=== PATIENT | male | born 1950 | race Caucasian/White ===

== ENCOUNTER 2024-01-30 05:46 | Inpatient (IN) ==
--- NOTE | 2024-01-23 12:26 | Anesthesiology Consultation ---
Date of Service January 23, 2024 Assessment & Plan (1) Encounter for pre-operative examination: - Check BSG DOS - Infectious disease screening: Per assessment on 01/19/24- No known recent infectious disease contacts or current infectious disease symptoms. - PCP visit (01/19/24): "Twelve-lead EKG completed and it shows that he has right bundle branch block which is incomplete and otherwise has no other f indings. WI interval is 0.178. Heart rate 61. Explained to him that he had a mild conduction disturbance in the heart that really is of no clinical significance other than to avoid certain medications that can slow conduction through the heart. He voices understanding and he is medically stable for operative intervention" Chart Review Chart Review: Acceptable Risk for Surgery and Patient NOT seen in Pre Admission Testing History Surgery Operation Date: 01/30/24 07:30 Proposed Procedures p Robotic Assisted Laparoscopic Radical Retropubic Prostatectomy, Possible Open, Possible Pelvic Lymph Node Dissection - Lex Smith MD Height/Weight Height: 5 ft 5 in Weight: 63.503 kg Allergies Allergy/AdvReac Type Severity Reaction Status Date / Time bactrim Allergy Mild Rash Uncoded 01/19/24 14:36 ranch dressing AdvReac Mild stomach Uncoded 01/19/24 14:36 problems "doesn't feel good" Medications Home Medications Medication Instructions Recorded Confirmed Last Taken metformin 500 mg tablet 1,000 mg (2 x 500 mg) PO BID #360 01/24/23 01/19/24 Unknown tabs levothyroxine 50 mcg tablet 50 mcg PO QAM #90 tabs 03/07/23 01/19/24 Unknown Plantsulin Herbal 1 cap PO QAM 01/19/24 01/19/24 Unknown cholecalciferol (vitamin D3) 125 125 mcg PO DAILY 01/19/24 01/19/24 Unknown mcg (5,000 unit) tablet (Vitamin D3) glimepiride 1 mg tablet 1 mg PO QPM 01/19/24 01/19/24 Unknown Past Medical History Medical History Acid reflux Occasional Arthritis Diabetes mellitus, type 2 Elevated PSA Generalized osteoarthritis Hypercholesteremia no meds Hypothyroidism Prostate cancer Past Family History Family History Father Myocardial infarction Other No family history of adverse response to anesthesia Denies family history of Ovarian cancer Prostate cancer Breast cancer Colorectal cancer Past Surgical History Surgical History H/O prostate biopsy History of carpal tunnel surgery right History of colonoscopy History of tonsillectomy History of tooth extraction Hx of vasectomy Social History Smoking Status: Former smoker Do You Dip or Chew Tobacco: No Smoking End Date: as a teenager Hx Alcohol Use: No Alcohol type: wine Hx Substance Use: No substance use type: does not use Lab Results Anesthesia Preop Results Results Anesthesia Widget: WBC 4.98 K/ul (4.8-10.8) 11/28/23 Hgb 14.2 g/dl (14.0-18.0) 11/28/23 Hct 43.5 % (42.0-52.0) 11/28/23 Plt 216 K/uL (130-400) 11/28/23 Na 139 mmol/L (136-145) 01/09/24 K 4.3 mmol/L (3.5-5.1) 01/09/24 Cl 104 mmol/L (98-107) 01/09/24 CO2 28 mmol/L (21-32) 01/09/24 BUN 19 mg/dl (6-23) 01/09/24 Creat 0.88 mg/dl (0.6-1.4) 01/09/24 Glucose Level 66 mg/dl (70-99(Fasting)) L 01/09/24 HA1c 8.0 % (4.5-5.6) H 11/28/23 Testing Laboratory Results Urine culture (01/09/24): no growth Electrocardiogram Date: 01/19/24 SB at 53bpm. Borderline LAD. iRBBB.
[2024-01-30] MEDS ORDERED: LR 15ML/HR IV SCH (06:00)
[2024-01-30] MEDS: SODIUM CHLORIDE 0.9% 1,000 ML IV SCH ×3 (06:09→12:59)
[2024-01-30] MEDS: HEPARIN SOD 5,000 UNIT/0.5 ML VIAL SQ SCH ×2 (06:20→21:07)
[2024-01-30] MEDS ORDERED: PROPOFOL IV EMULSION 10 MG/ML 20 ML VIAL IV ONE (06:59)
[2024-01-30] MEDS ORDERED: DEXAMETHASONE SOD INJ 4 MG/ML VIAL ONE (06:59)
[2024-01-30] MEDS ORDERED: ONDANSETRON INJ 2 MG/ML 2 ML VIAL ONE (06:59)
[2024-01-30] MEDS ORDERED: fentaNYL citrate PF 100 MCG/2 ML VIAL ONE ×2 (06:59→09:19)
[2024-01-30] MEDS ORDERED: LIDOCAINE 2% 2 ML VIAL/AMP(20MG/ML) INFIL ONE (06:59)
[2024-01-30] MEDS ORDERED: MIDAZOLAM HCL 1 MG/ML 2ML VIAL ONE (06:59)
[2024-01-30] MEDS ORDERED: ROCURONIUM BROMIDE 10 MG/ML 5 ML VIAL IV ONE (06:59)
[2024-01-30] MEDS ORDERED: ATROPINE SULFATE 0.1 MG/ML 10ML SYR IV PRN (07:07)
[2024-01-30] MEDS ORDERED: ePHEDrine sulfate 50 MG/ML AMP IV PRN (07:07)
[2024-01-30] MEDS ORDERED: HYDROmorphone INJ 1 MG/ML SYRINGE IV PRN (07:07)
[2024-01-30] MEDS ORDERED: PROPOFOL IV EMULSION 10 MG/ML 100 ML VIAL IV ONE (07:19)
[2024-01-30] MEDS ORDERED: DEXTROSE 50% 50 ML SYRINGE IV ONE (07:19)
--- NOTE | 2024-01-30 07:25 | History & Physical Report ---
Date of Service January 30, 2024 Assessment & Plan (1) Prostate cancer: Plan: Prostate Cancer presenting for robotic prostatectomy risks, benefits, and expectations reviewed History of Present Illness Primary Care Provider: Balbir Harry MD prostate cancer, presenting for definitive treatment via prostatectomy Allergies Allergy/AdvReac Type Severity Reaction Status Date / Time bactrim Allergy Mild Rash Uncoded 01/30/24 06:03 ranch dressing AdvReac Mild stomach Uncoded 01/30/24 06:03 problems "doesn't feel good" Home Medications Medication Instructions Recorded Confirmed Type metformin 500 mg tablet 1,000 mg (2 x 500 mg) PO BID #360 01/24/23 01/30/24 Rx tabs levothyroxine 50 mcg tablet 50 mcg PO QAM #90 tabs 03/07/23 01/30/24 Rx Plantsulin Herbal 1 cap PO QAM 01/19/24 01/30/24 History cholecalciferol (vitamin D3) 125 125 mcg PO DAILY 01/19/24 01/30/24 History mcg (5,000 unit) tablet (Vitamin D3) glimepiride 1 mg tablet 1 mg PO QPM 01/19/24 01/30/24 History Past Med/Surg History Problem List Encounter for pre-operative examination Vitamin B12 deficiency (non anemic) Memory loss Lumbar radiculopathy Changing skin lesion Medical History Generalized osteoarthritis Arthritis Prostate cancer Acid reflux Occasional Hypothyroidism Hypercholesteremia no meds Diabetes mellitus, type 2 Elevated PSA Surgical History Hx of vasectomy H/O prostate biopsy History of colonoscopy History of carpal tunnel surgery right History of tooth extraction History of tonsillectomy Family History Father Myocardial infarction Other No family history of adverse response to anesthesia Denies family history of Ovarian cancer Prostate cancer Breast cancer Colorectal cancer Social History Smoking Status: Former smoker Tobacco Type: Cigarettes Age Started Using Tobacco: 17; Age Quit Using Tobacco: 22; packs per day: 1; Smoking End Date: as a teenager; Second Hand Exposure: No; Do You Dip or Chew Tobacco: No; Hx Alcohol Use: No Hx Substance Use: No Preferred Language: Citizen Of [place] Communication Ability: Effective Visual Impairment: Limited Hearing Ability: Use of Hearing Aid Brake Repairer Required: No Beliefs That Will Affect Care: None marital status: Current Living Situation: Spouse current occupational status: employed 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 Feels Safe at Home: Yes Safety Concerns: Feels Safe At This Time Childhood Exposure to Second-Hand Smoke: No Diet: diabetic and low carbohydrate caffeine: Yes during the past year weight has: remained stable Dental Care, Regularly: Yes Physical Activity Frequency: Daily Seatbelt Use: sometimes Sunscreen Use: No Do you think of yourself as: straight/heterosexual Assistive Devices: Glasses and Hearing Aid - Bilateral Physical Exam Constitutional: well developed and well nourished Neck: neck nontender Respiratory: normal respiratory effort; no respiratory distress and does not use accessory muscles Cardiovascular: Rate/Rhythm: regular rate Vessels: radial pulses present Extremities: no edema Gastrointestinal (Abdomen): Inspection/Auscultation: abdomen normal to inspection Percussion/Palpation: abdomen soft; abdomen nontender and no guarding Musculoskeletal: Head/Neck/Chest: normocephalic and head atraumatic Extremities: extremities normal to inspection Skin: no rashes and no lesions Trauma: no evidence of skin trauma Neurologic: awake; not obtunded Speech / Cognition: normal speech Motor/Sensory: no tremor Psychiatric: Orientation: alert and oriented x 3 Genitourinary: no CVA tenderness Lymphatic: no lymphadenopathy Results & Data Vital Signs (Past 12 Hours) Vital Signs Temp Pulse Resp BP Pulse Ox O2 Del Method 01/30/24 06:06 36.6 C 53 L 20 153/79 H 95 Room Air
[2024-01-30] MEDS: ceFAZolin 2000MG 2,000 MG/15 ML SYR IV SCH (08:00)
[2024-01-30] MEDS ORDERED: GLYCOPYRROLATE 0.2 MG/ML VIAL ONE ×2 (08:26→10:05)
[2024-01-30] MEDS ORDERED: ePHEDrine sulfate 50 MG/5 ML SYR ONE (08:26)
[2024-01-30] MEDS: BUPIVACAINE 0.5 % 5 MG/1 ML MPF 30ML VIAL ONE (10:10)
--- NOTE | 2024-01-30 10:23 | Operative Report ---
[facility] Post Operative Report Pre & Post Diagnosis Operation Date: 01/30/24 07:30 Pre-Op Diagnosis: Prostate Cancer Post-Op Diagnosis: Prostate Cancer I identified the patient and participated in the time-out.: Yes Procedure Operation Date: 01/30/24 07:30 Actual Procedures p Robotic Assisted Laparoscopic Radical Retropubic Prostatectomy, Pelvic Lymph Node Dissection(Not Applicable) - Lex Smith MD Surgeon Lex Smith MD Regulatory Affairs Portfolio Leader Mandy Gage Estimated Blood Loss 25 Findings Consistent with Post-Op Diagnosis Specimens 1. Periprostatic fat 2. Left obturator lymph node 3. Right obturator lymph nodes 4. Prostate and seminal vesicles Description of Procedure The patient was identified in the preoperative holding area, appropriate informed consents were reviewed and completed, and he was transported to the operating suite. Subcutaneous heparin was administered in the pre-operative holding area. Upon arrival in the operating suite, he received appropriate antibiotics and general anesthesia. He was positioned in dorsal lithotomy, a B&O suppository was inserted after digital rectal exam, and he was prepped and draped in standard fashion. A Barlow catheter was inserted in the sterile field. A Veress needle was passed per umbilicus with uniform insufflation of the abdomen to 15mmHg. He was placed in steep Trendelenburg position. A periumbilical incision was then made to accommodate a 12mm Visiport with 10mm 0degree laparoscope. Inspection of the abdomen was carried out, and there was no evidence of traumatic entry or injury secondary to the Veress needle. After confirming a clear anterior abdominal wall, ports were subsequently placed in standard robotic prostatectomy fashion without incident. To begin the robotic portion of the case, the left lateral aspect of the sigmoid was mobilized off of the left pelvic side wall to allow the pouch of Francesco to be appropriately visualized. I then made an incision in the pouch of Francesco, overlying the seminal vesicles. Both SVs as well as the ampullae of the vasa were entirely dissected, with the vasa transected 3cm from the prostate. The medial umbilical ligaments were then controlled with bipolar electrocautery just inferior to the umbilicus. Following cauterization, they were divided utilizing monopolar cautery. A peritoneal incision was carried from this location to the medial aspect of the internal inguinal rings bilaterally with care to avoid opening through the ring. This incision was concluded when the vas deferens was reached. Dissection of the bladder and prostate off of the posterior aspect of the pubic arch was completed allowing full visualization of the prostate. The fat overlying the prostate was removed en bloc and passed off the table as a specimen labeled "periprostatic fat". The endopelvic fascia was cleared during this portion of the procedure, and subsequently opened - first on the right and then the left. The incision through the endopelvic fascia began near the prostate-bladder junction and was carried to the apex with extreme care to preserve all lateral levator musculature as well as the periurethral musculature and sphincter complex. I additionally preserved the puboprostatic ligaments. I then controlled the DVC with a 3-0 V-lock suture in overlapping/figure of 8 fashion. The lymph node dissection was then conducted. External iliac vessels were identified on the pelvic side wall. The packet of fat and lymphatic tissue that resides just under the iliac vein was elevated and off of the vein with a split and roll technique. The packet was dissected laterally to the circumflex vein and distally to the obturator nerve which was preserved. The proximal aspect of the packet was carried towards the bifurcation of the iliac vessels. A combination of monopolar and bipolar cautery were used to assist with control. After completing the dissection on both sides, the packets were collected and passed off of the table as specimens labeled "pelvic/obturatorlymph nodes". My attention then returned to the prostate, with identification of the bladder neck aided by gentle traction on the Barlow catheter and lateral to medial pressure at the presumed level of the bladder neck with the robotic instruments. An anterior cystotomy was made, the Barlow balloon deflated and the catheter guided through the incision to allow anterior retraction. I attempted to preserve maximal bladder neck musculature as I circumferentially dissected around the bladder neck. After incision through the posterior aspect of the mucosa, the dissection was carried through detrusor muscle until the bilateral ampullae of the vasa were identified. The previously dissected vasa and SVs were brought through the incision and used to elevated the prostate anteriorly. A posterior plane behind the prostate was then developed - splitting Denonvilliers's fascia. This dissection was carried as far as possible towards the apex as well as far as possible laterally. An incision in the lateral prostatic fascia was then made bilaterally to facilitate control of the vascular pedicles and preservation of the nerve bundles. Vasculature running along the posterior/lateral aspect of the prostate was preserved as well as the tissue containing the nerves. The pedicles were then controlled with a series of Weck clips. The apical attachments of the prostate were remaining at that stage. The DVC was divided after control with bipolar cautery over the prostate. Continuous inspection from anterior and lateral views allowed me to closely follow the apical contour of the prostate and maximally preserve urethral length and tissue. The prostate was entirely freed at that point, and collected in an EndoCatch bag before being moved out of the field of vision. Hemostasis was confirmed and anastomosis of the bladder and urethra was completed utilizing a double armed V-Lock stitch. A new Barlow catheter was inserted and the anastomosis tested with irrigation. There was no evidence of leak. A binu style stitch was placed bilaterally to functionally marsupialize the area of the lymph node dissection. The robot was undocked, the specimen extracted through expansion of the aneta- umbilical camera port. The fascia was closed with a series of 0-PDS figure of 8 stitches. The right nursing assistant port was closed in two layers - with a figure of 8 0-Vicryl to reapproximate the fascia followed by 4-0 Monocryl to close the skin. Monocryl was used to close all other skin incisions. All wounds were dressed with Dermabond. The case was concluded and the patient taken to the PACU in stable condition. Mandy Gage assisted from incision to closure. I attest to the content of the Intraoperative Record and any orders documented therein. Any exceptions are noted below.
[2024-01-30] MEDS ORDERED: NEOSTIGMINE METHYLSULFATE 1 MG/ML 10ML VIAL ONE (10:27)
[2024-01-30] MEDS: fentaNYL citrate PF 100 MCG/2 ML VIAL IV PRN (10:42)
[2024-01-30] MEDS: ONDANSETRON INJ 2 MG/ML 2 ML VIAL IV PRN (11:10)
[2024-01-30 11:15] LABS: Basophils # (auto) 0.02 K/uL (0.00-0.20); Basophils % (auto) 0.2 %; Eosinophils # (auto) 0.08 K/uL (0.00-0.50); Eosinophils % (auto) 0.7 %; Hematocrit (blood only) 40.3 % (42.0-52.0); Hemoglobin 13.1 g/dl (14.0-18.0); Immature Granulocytes # (auto) 0.05 K/uL (0.01-0.20); Immature Granulocytes % (auto) 0.4 %; Lymphocytes # (auto) 1.32 K/uL (1.20-3.40); Lymphocytes % (auto) 11.3 %; Mean Corpuscular Hemoglobin 28.9 pg (25.0-34.0); Mean Corpuscular Hgb Conc 32.5 g/dL (32.0-36.0); Mean Platelet Volume 9.4 fL (9.4-12.4); Monocytes # (auto) 0.22 K/uL (0.11-0.59); Monocytes % (auto) 1.9 %; Neutrophils # (auto) 10.04 K/uL (1.40-6.50); Neutrophils % (auto) 85.5 %; Platelet Count 191 K/uL (130-400); RDW Coefficient of Variation 12.8 % (11.5-14.5); RDW Standard Deviation 41.9 fL (36.4-46.3); Red Blood Count 4.53 M/uL (4.70-6.10); White Blood Count 11.73 K/ul (4.8-10.8)
[2024-01-30 11:29] LABS: BUN Creatinine Ratio 17.1 (10-20); Calcium 8.7 mg/dl (8.6-10.3); Creatinine Clr Calc Pharmacy 55.3 ml/min; Potassium 4.4 mmol/L (3.5-5.1)
--- NOTE | 2024-01-30 11:56 | Anesthesiology Progress Note ---
Date of Service January 30, 2024 Anesthesia Post Procedure Vital Signs Vital Signs: Temp Pulse Pulse Resp BP Pulse Ox O2 Del Method 01/30/24 11:35 36.5 C 01/30/24 11:30 53 L 12 128/74 97 Oxymask 01/30/24 11:20 49 L 19 140/71 99 Oxymask 01/30/24 11:10 55 L 19 124/74 98 Oxymask 01/30/24 11:00 59 L 17 124/44 L 97 Oxymask 01/30/24 10:50 46 L 14 114/72 93 Oxymask 01/30/24 10:40 58 L 16 114/72 98 Oxymask 01/30/24 10:30 36.8 C 58 L 12 102/63 93 Oxymask 01/30/24 06:06 36.6 C 53 L 20 153/79 H 95 Room Air O2 Flow Rate 01/30/24 11:35 01/30/24 11:30 4 01/30/24 11:20 4 01/30/24 11:10 4 01/30/24 11:00 6 01/30/24 10:50 8 01/30/24 10:40 10 01/30/24 10:30 10 01/30/24 06:06 Pain Intensity Abdomen: Pain Intensity: 4 Transfer of Care Handoff Completed per policy Notes Mental Status: alert / awake / arousable and participated in evaluation Patient Amnestic to Procedure: Yes Nausea / Vomiting: adequately controlled Pain: adequately controlled Airway Patency, RR, SpO2: stable & adequate BP & HR: stable & adequate Hydration State: stable & adequate Anesthetic Complications: no major complications apparent and Pt Satisfied with anesthetic care
[2024-01-30] MEDS ORDERED: ONDANSETRON INJ 2 MG/ML 2 ML VIAL IV PRN (12:30)
[2024-01-30] MEDS ORDERED: oxyCODONE HCL IR 5 MG TAB (IMMEDIATE RELEASE) PO PRN (12:30)
[2024-01-30] MEDS ORDERED: HYDROmorphone INJ 0.5 MG/0.5 ML SYR IV PRN ×2 (12:30)
[2024-01-30] MEDS: ACETAMINOPHEN 325 MG TAB PO SCH (12:58)
[2024-01-30] MEDS: oxyCODONE HCL IR 5 MG TAB (IMMEDIATE RELEASE) PO PRN (14:21)
[2024-01-30] MEDS: ceFAZolin 1000MG 1,000 MG/7.5 ML SYR IV SCH (16:19)
[2024-01-30] MEDS: DOCUSATE SODIUM 100 MG CAP PO SCH (21:07)
[2024-01-31 04:11] VITALS: PULSE 54; RESP 16
[2024-01-31] MEDS: LEVOTHYROXINE SODIUM 50 MCG TABLET PO SCH (05:44)
[2024-01-31 07:46] VITALS: BP 167/91; TEMP 97.7; O2SAT 93
--- NOTE | 2024-01-31 07:57 | Urology Progress Note ---
Date of Service January 31, 2024 Assessment & Plan (1) Prostate cancer: Plan: Postop day #1 status post robotic prostatectomy Recovery very much on pace Continue ambulation Hep-Lock IV fluid Barlow teaching Discharge home Admission and Anticipated Discharge Date Admission Date: January 30, 2024 Subjective No issues overnight, ambulatory No nausea, not distended, pain well-controlled Physical Exam Physical Exam: Incisions all appear quite appropriate Urine crystal-clear Results & Data Vital Signs (Past 12 Hours) Vital Signs Temp Pulse Resp BP Pulse Ox O2 Del Method O2 Flow Rate 01/31/24 07:45 36.5 C 54 L 16 167/91 H 93 Room Air 01/31/24 04:00 36.9 C 54 L 16 136/77 94 Room Air 01/30/24 23:14 36.8 C 58 L 18 133/70 97 Room Air 01/30/24 21:00 Room Air 01/30/24 20:00 36.8 C 64 16 143/80 H 96 Nasal Cannula 2 PG Care Time/CCT Total # of Minutes Spent Total Time Spent with Patient: Total time spent is greater than 50% in coordination of care (as documented) at patient's floor/unit and/or counseling patient: Coding Level of Care Code None Diagnoses Prostate cancer C61
[2024-01-31 08:49] LABS: Calcium 8.9 mg/dl (8.6-10.3); Creatinine Clr Calc Pharmacy 67.5 ml/min; Potassium 4.1 mmol/L (3.5-5.1)
--- NOTE | 2024-01-31 08:51 | Discharge Summary ---
Date of Service January 31, 2024 Admission HPI Per Admitting Provider prostate cancer, presenting for definitive treatment via prostatectomy Principal Diagnosis Prostate cancer Discharge Exam Constitutional well developed and well nourished; no acute distress Respiratory normal respiratory effort; no respiratory distress and no labored breathing Gastrointestinal (Abdomen) Inspection/Auscultation: abdomen normal to inspection Musculoskeletal Head/Neck/Chest: normocephalic Neurologic moves all extremities and awake Psychiatric Orientation: alert and oriented x 3 Genitourinary Barlow draining clear yellow Discharge Data Allergies Allergy/AdvReac Type Severity Reaction Status Date / Time bactrim Allergy Mild Rash Uncoded 01/30/24 06:03 ranch dressing AdvReac Mild stomach Uncoded 01/30/24 06:03 problems "doesn't feel good" Procedures Performed Operation Date: 01/30/24 07:30 Actual Procedures p Robotic Assisted Laparoscopic Radical Retropubic Prostatectomy, Pelvic Lymph Node Dissection(Not Applicable) - Lex Smith MD Hospital Course (1) Prostate cancer: Postop day #1 status post robotic prostatectomy Recovery very much on pace Continue ambulation Hep-Lock IV fluid Barlow teaching Discharge home Total Time Total Time Spent Total Time Spent (In Minutes): 29 Discharge Plan Discharge Items Patient Disposition: Home - Self-Care Reason For Visit: Prostate Cancer Discharge Diagnosis: Prostate cancer Activity: Per Instructions section Lifting: No more than 10 pounds Bathing Comment: Okay to shower after discharge, no tub bath or soaking Sexual Activity: Wait until after follow-up appointment Exercise/Sports: Wait until after follow-up appointment Driving/Machine Use: No driving while taking prescription pain medication Non-emergency contact: Surgeon and Urologist Call non-emergency contact if: your pain is not controlled, you have a fever, your temperature is above 101, your wound has increased redness, your wound has increased drainage and your wound pain has increased Follow-up/Referrals: Balbir Harry MD [Primary Care Provider] - [facility],Nurse [FAKE FOR SCHEDULES] - 02/05/24 9:20 am (catheter removal) Diet: Regular and Carb Consistent or DM2 Addtl Attending Provider Instructions: Please take all medications as prescribed and keep all follow-ups as scheduled. Please call our office at [phone] with any questions, concerns or need to reschedule appointments for any reason. We are happy to assist you. We have sent an antibiotic to your pharmacy of choice. Please begin antibiotic as prescribed the day BEFORE your scheduled voiding trial at [facility]. Please continue antibiotic every 12 hours through the day AFTER your voiding trial. Activity: We recommend having someone with you for the first few days after surgery to help care for you. For the first 2 weeks after surgery, we would like you to get up and walk around your house. However, we recommend limit physical activity that would increase your heart rate. This will allow your body to rest and heal. Take naps if you feel tired. Don't lift anything heavier than 10 pounds, mow the law or ride a bicycle until your follow-up appointment. Please avoid long car rides. Home Care: Unless directed otherwise, drink 6 to 8 glasses of water a day (enough to keep your urine light colored). This will also help keep a healthy flow of urine. We recommend using a stool softener for the first two weeks to avoid constipation. Barlow Catheter or Suprapubic Catheter care: Keep the catheter well secured with either a leg back or leg strap with large bag. Empty your bag when it's about half full. You may notice some blood in the bag. This is normal after surgery and while the catheter is in place. Use mild soap (such as Dove or Dial) and water to wash the catheter and the head of your penis daily, or more frequently if needed. Return to your normal diet, we encourage good protein intake to promote healing. You may shower as normal. Please avoid tub baths or soaking until catheter removed and incisions well healed. Wearing sweat pants while you have the catheter is recommended, they will be more comfortable. Follow-up Your follow up appointments for having your catheter removed, and follow up with your physician should already be scheduled. If you have any questions regarding this, please contact our office. Your final pathology report will be discussed at your physician follow-up appointment. Call [facility] at [phone] right away if you have any of the following: Chest pain or trouble breathing (call [phone] or go to the hospital) Fever of 101F or higher, uncontrolled vomiting Heavy bleeding, clots, or bright red blood from the catheter Catheter that falls out or stops draining Foul-smelling discharge from your catheter Redness, swelling, warmth, or increased pain at your incision site Drainage, pus, or bleeding from your incision Pending Studies at Discharge: Yes (pathology) Stand-Alone Forms: My [facility], Smoking Cessation Medications and DC Order Prescriptions: New ciprofloxacin HCl 500 mg tablet 500 mg PO BID Qty: 6 0RF oxycodone-acetaminophen [Percocet] 5-325 mg tablet 1 tab PO TID PRN (Reason: pain) Qty: 7 0RF docusate sodium [Colace] 100 mg capsule 100 mg PO BID Qty: 60 0RF Rx Instructions: Take twice daily for 2 weeks, then as needed for constipation. Continued metformin 500 mg tablet 1,000 mg PO BID Qty: 360 3RF Rx Instructions: Take with meals for diabetes. levothyroxine 50 mcg tablet 50 mcg PO QAM Qty: 90 3RF Rx Instructions: Take about 30 minutes prior to other medication and food cholecalciferol (vitamin D3) [Vitamin D3] 125 mcg (5,000 unit) Tablet 125 mcg PO DAILY Plantsulin Herbal 1 cap PO QAM glimepiride 1 mg tablet 1 mg PO QPM Rx Instructions: Prior to evening meal for diabetes. Discharge Orders: Discharge Order (Routine); Ordered 01/31/24 Ordered By: Mandy Schmitt/Other Patient Handouts: Radical Prostatectomy, Urinary Catheter Bag Empty Clean, Indwelling Urinary Catheter Dc Admission Data Admit Date/Time: 01/30/24 10:23 Attending Provider: Lex Smith Admit Provider: Lex Smith Primary Care Provider: Balbir Harry Other Interventions: Discharge Summary Assessment (RN) Last Done: 01/31/24 10:20 Coding Level of Care Code 35735 OBS Care - Discharge Diagnoses Prostate cancer C61
[2024-01-31] MEDS: CHOLECALCIFEROL 125 MCG (5,000 UNITS) TAB PO SCH (09:06)
[2024-01-31 09:32] LABS: Basophils # (auto) 0.01 K/uL (0.00-0.20); Basophils % (auto) 0.1 %; Eosinophils # (auto) 0.02 K/uL (0.00-0.50); Eosinophils % (auto) 0.2 %; Hemoglobin 13.1 g/dl (14.0-18.0); Immature Granulocytes # (auto) 0.03 K/uL (0.01-0.20); Immature Granulocytes % (auto) 0.3 %; Lymphocytes # (auto) 1.69 K/uL (1.20-3.40); Lymphocytes % (auto) 17.3 %; Mean Corpuscular Volume 90.9 fL (80.0-100.0); Mean Platelet Volume 9.6 fL (9.4-12.4); Monocytes # (auto) 0.81 K/uL (0.11-0.59); Monocytes % (auto) 8.3 %; Neutrophils % (auto) 73.8 %; Platelet Count 214 K/uL (130-400); RDW Coefficient of Variation 13.2 % (11.5-14.5); RDW Standard Deviation 44.3 fL (36.4-46.3); Red Blood Count 4.51 M/uL (4.70-6.10); White Blood Count 9.76 K/ul (4.8-10.8)
== END 2024-01-31 10:35 | disposition home or self-care (01) | DRG 708 ==
LOC: ASU 05:46 → 3W 10:23